=== PATIENT | female | born 1975 ===

== ENCOUNTER 2017-04-05 14:14 | Emergency (ER) | payer OTHER ==
[2017-04-05 14:18] VITALS: BP 141/81; PULSE 93; RESP 18; TEMP 98.3; O2SAT 97
[2017-04-05 14:21] VITALS: BMI 27.9
--- NOTE | 2017-04-05 14:39 | ED PDOC ---
Lower Extremity Pain/Injury Time Seen by Provider: 04/05/17 14:24 Chief Complaint (Nursing): Lower Extremity Problem/Injury Chief Complaint (Provider): Lower extremity problem/injury History Per: Patient History/Exam Limitations: no limitations Onset/Duration Of Symptoms: Days (x 2weeks) Current Symptoms Are (Timing): Still Present Additional Complaint(s): Bianca De Leon is a 42 y/o female presents to the ED with a chief complaint of a left knee pain for 2 weeks. Patient reports hitting her left knee on a chair during a 2 weeks ago. States she took Tylenol w/codeine which did not help the pain. She did not seek medical attention at time of injury 2 weeks ago and presents today with worsening pain and swelling. Patient is able to walk but has pain when doing so. PMD: Dr. Peralta Past Medical History Reviewed: Historical Data, Nursing Documentation, Vital Signs Vital Signs: Last Vital Signs Temp 98.3 F 04/05/17 14:15 Pulse 93 H 04/05/17 14:15 Resp 18 04/05/17 14:15 BP 141/81 04/05/17 14:15 Pulse Ox 97 04/05/17 14:15 - Medical History PMH: HTN, Kidney Stones, Malignancy (Hx of breast CA, completed chemotherapy and radiation) - Surgical History Surgical History: Cholecystectomy, Other surgeries: Lump removed from right breast - Family History Family History: States: No Known Family Hx, Unknown Family Hx - Living Arrangements Living Arrangements: With Family - Social History Current smoker - smoking cessation education provided: No Ex-Smoker (has not smoked in the last 12 months): No Alcohol: None Drugs: Denies - Home Medications Home Medications: Ambulatory Orders Medication Instructions Recorded amLODIPine [Norvasc] 1 tab PO DAILY 11/17/14 Oxycodone HCl/Acetaminophen 1 tab PO PRN 11/23/14 [Oxycodone HCl and Acetaminophen 325 mg-5 mg] amLODIPine [Norvasc] 5 mg PO DAILY 06/26/15 Cefuroxime Axetil [Ceftin] 500 mg PO BID #28 tab 06/27/15 Oxycodone HCl/Acetaminophen 1 tab PO Q6H PRN #20 tab 06/27/15 [Percocet 325 mg-5 mg] Tamsulosin [Flomax] 0.4 mg PO DAILY #10 cap 06/27/15 Docusate [Colace] 100 mg PO Q12 #20 cap 07/03/15 Ibuprofen [Motrin] 600 mg PO Q8 PRN #20 tab 07/03/15 Oxycodone HCl/Acetaminophen 1 tab PO Q8 PRN #16 tab 07/03/15 [Percocet 325 mg-5 mg] Phenazopyridine [Phenazopyridine 200 mg PO Q8 #6 tab 07/03/15 HCl] Polyethylene Glycol 3350 [Miralax] 17 gm PO DAILY #500 ml 07/03/15 Naproxen [Naprosyn] 500 mg PO Q12H #20 tab 11/08/15 Ibuprofen [Motrin Tab] 800 mg PO Q8 PRN #20 tab 04/05/17 - Allergies Allergies/Adverse Reactions: Allergies Allergy/AdvReac Type Severity Reaction Status Date / Time ciprofloxacin [From Cipro] Allergy ITCHING Verified 04/05/17 14:19 hydromorphone Allergy ITCHING Verified 04/05/17 14:19 iodine Allergy ANGIOEDEMA Verified 04/05/17 14:19 Wells Criteria for PE - Wells Criteria for Pulmonary Embolism Clinical Signs and Symptoms of DVT: No P.E is #1 Diagnosis, or Equally Likely: No Heart Rate >100: No Immobilization at least 3 days;Surgery previous 4 weeks: No Previous, objectively diagnosed PE or DVT: No Hemoptysis: No Malignancy w/treatment within 6 months, or palliative: No Total Score: 0 Review of Systems ROS Statement: Except As Marked, All Systems Reviewed And Found Negative Musculoskeletal: Positive for: Leg Pain (Left knee pain - injury 2 weeks ago) Physical Exam - Reviewed Nursing Documentation Reviewed: Yes Vital Signs Reviewed: Yes - Physical Exam Appears: Positive for: Well, Non-toxic, No Acute Distress Skin: Negative for: Rash Eye Exam: Positive for: Normal appearance Extremity: Positive for: Other (Mild swelling medial aspect of the knee with full range of motion, no calf swelling or tenderness, normal distal sensation). Negative for: Calf Tenderness Neurologic/Psych: Positive for: Alert, Oriented - Laboratory Results Urine POC: Negative - ECG O2 Sat by Pulse Oximetry: 97 (RA) Pulse Ox Interpretation: Normal - Other Rad Left knee x-ray X-Ray: Interpreted by Me, Viewed By Me X-Ray Interpretation: no fx, no dis Medical Decision Making Medical Decision Makin: Initial Impression: 42 year old female with left knee injury Initial Plan: * Motrin 600 mg PO * Left knee X-Ray * Urine POC Patient aware of x-ray results. All questions answered. Crutches given along with the immobilizer. Prescription given for Motrin. Patient also has Tylenol with codeine but she can take for pain. Patient was referred to orthopedist health information managers and advised follow-up in 2-3 days. Scribe Attestation: Documented by Zandra Vazquez acting as a scribe for Danii Hair PA-C. Provider Scribe Attestation: All medical record entries made by the Scribe were at my direction and personally dictated by me. I have reviewed the chart and agree that the record accurately reflects my personal performance of the history, physical exam, medical decision making, and the department course for this patient. I have also personally directed, reviewed, and agree with the discharge instructions and disposition. Procedures - Splinting Location: left knee Pre-Made Type: knee immobilizer Pre-Proc Neuro Vasc Exam: normal Post-Proc Neuro Vasc Exam: normal Disposition - Clinical Impression Clinical Impression: Knee contusion, Knee sprain - Patient ED Disposition Is Patient to be Admitted: No Counseled Patient/Family Regarding: Studies Performed, Diagnosis, Need For Followup, Rx Given - Disposition Referrals: Raghavendra Ayala III, MD [Staff Provider] - Disposition: Routine/Home Disposition Time: 16:06 Condition: STABLE Additional Instructions: Ice, rest and elevate affected area. Take prescription meds for pain relief as needed along with tylenol with codeine tabs that you already have for pain control. Follow up in 2-3 days with orthopedics for further evaluation. Prescriptions: Ibuprofen [Motrin Tab] 800 mg PO Q8 PRN #20 tab PRN Reason: Pain, Moderate (4-7) Instructions: Knee Sprain (ED), Knee Immobilizer (ED), Crutch Instructions (ED)
--- NOTE | 2017-04-05 15:55 | RAD ---
PROCEDURE: Left Knee Radiographs. HISTORY: Pain. COMPARISON: None. FINDINGS: BONES: Normal. No fracture. JOINTS: Normal. No osteoarthritis. JOINT EFFUSION: None. OTHER FINDINGS: None. IMPRESSION: Normal radiographs of the left knee.
== END 2017-04-05 17:00 | disposition home or self-care (01) ==
LOC: H.ER 14:14
DX: S83.401A Sprain of unspecified collateral ligament of right knee, initial encounter (principal); W22.8XXA Striking against or struck by other objects, initial encounter; Y92.89 Other specified places as the place of occurrence of the external cause; I10 Essential (primary) hypertension; Z85.3 Personal history of malignant neoplasm of breast; Z87.891 Personal history of nicotine dependence

== ENCOUNTER 2018-11-09 12:25 | Emergency (ER) | payer OTHER ==
[2018-11-09 12:26] VITALS: BMI 27.9
[2018-11-09 12:35] VITALS: BP 118/67; PULSE 71; RESP 19; TEMP 98.2; O2SAT 100
--- NOTE | 2018-11-09 13:11 | ED PDOC ---
Lower Extremity Pain/Injury Time Seen by Provider: 11/09/18 12:40 Chief Complaint (Nursing): Lower Extremity Problem/Injury Chief Complaint (Provider): Left knee pain History Per: Patient History/Exam Limitations: no limitations Onset/Duration Of Symptoms: Days (x2) Current Symptoms Are (Timing): Still Present Additional Complaint(s): 43 year old female presents to the ED after falling yesterday and twisting her left knee while wearing high heels. Patient denies hitting her head or any other injury, just reports left knee pain. She has been ambulatory since but with mild pain. PMD: none provided - Knee Description Of Injury: Fell Past Medical History Reviewed: Historical Data, Nursing Documentation, Vital Signs Vital Signs: Last Vital Signs Temp 98.2 F 11/09/18 12:31 Pulse 71 11/09/18 12:31 Resp 19 11/09/18 12:31 BP 118/67 11/09/18 12:31 Pulse Ox 100 11/09/18 12:31 - Medical History PMH: Gall Bladder Disease, HTN, Kidney Stones, Malignancy (Hx of breast CA, completed chemotherapy and radiation) - Surgical History Surgical History: Cholecystectomy, - Family History Family History: States: Unknown Family Hx - Home Medications Home Medications: Ambulatory Orders Medication Instructions Recorded amLODIPine [Norvasc] 1 tab PO DAILY 11/17/14 Oxycodone HCl/Acetaminophen 1 tab PO PRN 11/23/14 [Oxycodone HCl and Acetaminophen 325 mg-5 mg] amLODIPine [Norvasc] 5 mg PO DAILY 06/26/15 Cefuroxime Axetil [Ceftin] 500 mg PO BID #28 tab 06/27/15 Oxycodone HCl/Acetaminophen 1 tab PO Q6H PRN #20 tab 06/27/15 [Percocet 325 mg-5 mg] Tamsulosin [Flomax] 0.4 mg PO DAILY #10 cap 06/27/15 Docusate [Colace] 100 mg PO Q12 #20 cap 07/03/15 Ibuprofen [Motrin] 600 mg PO Q8 PRN #20 tab 07/03/15 Oxycodone HCl/Acetaminophen 1 tab PO Q8 PRN #16 tab 07/03/15 [Percocet 325 mg-5 mg] Phenazopyridine [Phenazopyridine 200 mg PO Q8 #6 tab 07/03/15 HCl] Polyethylene Glycol 3350 [Miralax] 17 gm PO DAILY #500 ml 07/03/15 Naproxen [Naprosyn] 500 mg PO Q12H #20 tab 11/08/15 Ibuprofen [Motrin Tab] 800 mg PO Q8 PRN #20 tab 04/05/17 - Allergies Allergies/Adverse Reactions: Allergies Allergy/AdvReac Type Severity Reaction Status Date / Time ciprofloxacin [From Cipro] Allergy ITCHING Verified 04/05/17 14:19 hydromorphone Allergy ITCHING Verified 04/05/17 14:19 iodine Allergy ANGIOEDEMA Verified 04/05/17 14:19 Review of Systems ROS Statement: Except As Marked, All Systems Reviewed And Found Negative Musculoskeletal: Positive for: Other (Left knee pain) Physical Exam - Reviewed Nursing Documentation Reviewed: Yes Vital Signs Reviewed: Yes - Physical Exam Appears: Positive for: Non-toxic, No Acute Distress Head Exam: Positive for: ATRAUMATIC, NORMOCEPHALIC Skin: Positive for: Normal Color, Warm, Dry Eye Exam: Positive for: Normal appearance Neck: Positive for: Normal, Painless ROM Extremity: Positive for: Normal ROM (full ROM of the left knee), Tenderness (mild tenderness over the left medial knee; mild tenderness over left anterior ankle, (-) tenderness over lateral or medial malleolus), Swelling (mild swelling over the left medial knee; no swelling of the left ankle.) Neurologic/Psych: Positive for: Alert, Oriented - ECG O2 Sat by Pulse Oximetry: 100 (RA) Pulse Ox Interpretation: Normal Medical Decision Making Medical Decision Making: Initial Plan: --ED urine --Left knee X-ray --Left ankle X-ray --Motrin 600mg PO X-rays: (+) small effusion, (-) fx, (-) dislocation. Knee immobilized with brant wrap by dennise vicente. Knee immobilizer applied. ---- Scribe Attestation: Documented by Mani Ray acting as a scribe for Lissette HALL. Provider Scribe Attestation: All medical record entries made by the Scribe were at my direction and personally dictated by me. I have reviewed the chart and agree that the record accurately reflects my personal performance of the history, physical exam, medical decision making, and the department course for this patient. I have also personally directed, reviewed, and agree with the discharge instructions and disposition. Disposition - Clinical Impression Clinical Impression: Knee injury - Patient ED Disposition Is Patient to be Admitted: No Counseled Patient/Family Regarding: Studies Performed, Diagnosis, Need For Followup, Rx Given - Disposition Referrals: Marry Barajas MD [Staff Provider] - Disposition: Routine/Home Disposition Time: 14:12 Condition: IMPROVED Additional Instructions: rest, ice, elevate Instructions: Knee Sprain (DC) Forms: [facility] (Gambian)
--- NOTE | 2018-11-09 13:57 | RAD ---
Date of service: 11/09/2018 HISTORY: trauma COMPARISON: None available. FINDINGS: BONES: Normal. No fracture. JOINTS: Normal. No osteoarthritis. SOFT TISSUE: Normal. OTHER FINDINGS: None . IMPRESSION: Normal Bone Xray.
== END 2018-11-09 14:20 | disposition home or self-care (01) ==
LOC: H.ER 12:25
DX: S89.92XA Unspecified injury of left lower leg, initial encounter (principal); X50.9XXA Other and unspecified overexertion or strenuous movements or postures, initial encounter; Y92.89 Other specified places as the place of occurrence of the external cause; I10 Essential (primary) hypertension; Z85.3 Personal history of malignant neoplasm of breast; Z88.5 Allergy status to narcotic agent